=== PATIENT | male | born 1935 | race Caucasian/White ===

== ENCOUNTER → 2018-12-06 | Outpatient (CLI) | payer MEDICARE ==
[~2018-12-06] MED LIST: ACET650T60 PO; DOXA2TAB2 PO; DOXA8TAB59 PO; HYDR-2761 PO; LISI-334 PO; LOVA40TA2 PO; METH2.5T PO; TRIA1CAP3 PO; TRIA1TAB3 PO
--- NOTE | 2018-12-06 13:41 | KCIC ---
100 quadrant ultrasound 12/06/2018 INDICATION: Right upper abdominal pain COMPARISON STUDY: None Discussion: Ultrasound evaluation of the right upper abdomen was performed. Static images are submitted to PACS. Exam is limited by gas filled bowel obscuring structures in the upper abdomen. The pancreas is nonvisualized. The gallbladder is visualized demonstrating no evidence of wall thickening, stones, or sludge. No pericholecystic fluid is seen. Visualized liver is grossly unremarkable. Visualized right kidney is within normal limits. The common bile duct is within normal limits for patient age. Right kidney measures approximately 10 cm in length. Liver measures approximately 15 cm in length. IMPRESSION: Limited study without sonographic evidence of acute abnormality Electronically signed by: Titi Mejia MD (12/06/2018 1:38 PM) [id number]
== END | disposition home or self-care (01) ==
LOC: KCIC US 10:06
PROVIDERS: ATTEND Family Medicine
DX: R10.11 Right upper quadrant pain (principal)
CPT/HCPCS: 76705